=== PATIENT | male | born 2000 | race Caucasian/White ===

== ENCOUNTER 2022-10-20 17:08 | Emergency (ER) | payer OTHER, BC, SELFPAY ==
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
[2022-10-20 17:10] VITALS: BP 170/107; PULSE 105; RESP 18; TEMP 36.2; O2SAT 100
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
[2022-10-20 18:55] VITALS: BP 141/94; PULSE 80; RESP 16; O2SAT 99
== END 2022-10-20 18:55 | disposition home or self-care (01) ==
PROVIDERS: Emergency Provider Physician Assistant
DX: S09.90XA Unspecified injury of head, initial encounter (principal); V53.5XXA Driver of pick-up truck or van injured in collision with car, pick-up truck or van in traffic accident, initial encounter
CPT/HCPCS: 70450; 72125; 99284